=== PATIENT | female | born 1990 | race Caucasian/White ===

== ENCOUNTER 2019-08-27 10:30 | Emergency (ER) | payer OTHER ==
[2019-08-27 10:45] VITALS: BP 105/73; PULSE 88; RESP 17; TEMP 98.2
--- NOTE | 2019-08-27 11:28 | ED ---
General Adult HPI - General Chief complaint: Needlestick/Exposure Stated complaint: [facility]HS- Needl stick Time Seen by Provider: 08/27/19 11:07 Source: patient Mode of arrival: ambulatory Limitations: no limitations - History of Present Illness Initial comments: Patient is a 29-year-old female presenting to the emergency department with a chief complaint of a needle stick exposure. Patient reports she was in our when she accidentally received a needlestick injury to the left index finger. Patient reports the source of the blood is known and currently blood is being obtained. Patient denies any pain at the needlestick site. Patient denies any numbness or tingling. Patient has full range of motion of the finger. No injury to the nailbed or nail. - Related Data Allergies Allergy/AdvReac Type Severity Reaction Status Date / Time No Known Allergies Allergy Verified 08/27/19 10:45 Review of Systems ROS Statement: Those systems with pertinent positive or pertinent negative responses have been documented in the HPI. ROS Other: All systems not noted in ROS Statement are negative. Past Medical History Additional Past Medical History / Comment(s): heart murmur History of Any Multi-Drug Resistant Organisms: None Reported Additional Past Surgical History / Comment(s): wisdom teeth removed Past Psychological History: No Psychological Hx Reported Smoking Status: Never smoker Past Alcohol Use History: Occasional Past Drug Use History: None Reported General Exam - General Exam Comments Initial Comments: General: Well-developed well-nourished distress HEENT: Normocephalic/atraumatic, PERLL, pharynx erythema, swallowing well, EAC no erythema, no exudates, TM clear, no cervical lymph nodes Neck: Supple, nontender, trachea midline Chest/Lungs: Normal respirations, no signs of respiratory distress clear to auscultation bilaterally no wheezes, rales, rhonchi Cardiac: Regular rate and rhythm, normal S1-S2, no murmurs rubs or gallops Abdomen/GI: Soft nontender, bowel sounds equal or quadrant x4, no guarding, no rebound no CVA tenderness Musculoskeletal: Nontender, full range of motion, no edema, strength equal bilaterally, needlestick injury to the distal end of the second left digit Skin: Warmth, no rashes or lesions, no cyanosis or diaphoresis Neurologic: AAO x 3, CN 2-12 intact, Psychiatric: Mood and affect normal, judgment normal Limitations: no limitations Course Vital Signs 08/27/19 10:42 Temperature 98.2 F Pulse Rate 88 Respiratory 17 Rate Blood Pressure 105/73 O2 Sat by Pulse 98 Oximetry Medical Decision Making - Medical Decision Making Patient is a 29-year-old female presenting to the emergency department with a chief complaint of a needle stick. Needle stick forearm was completed by the nurse in the patient. Labs will be obtained and sent for testing. Source is known. Patient will be contacted regarding any further laboratory findings. Strict return parameters were thoroughly discussed with patient was understanding and agreeable. Patient advised to follow with primary care if any abnormal results are indicated. Case discussed physician. Disposition Clinical Impression: Needlestick injury accident with exposure to body fluid Disposition: HOME SELF-CARE Condition: Stable Instructions (If sedation given, give patient instructions): Needle Stick Inju yamilka (ED) Additional Instructions: If any abnormal laboratory results are detected, you will be contacted. Please return to emergency department if symptoms worsen. Is patient prescribed a controlled substance at d/c from ED?: No Referrals: Ron Arredondo DO [Primary Care Provider] - 1-2 days Time of Disposition: 11:27
== END 2019-08-27 12:00 | disposition home or self-care (01) ==
LOC: EC 10:30
DX: S69.92XA Unspecified injury of left wrist, hand and finger(s), initial encounter (principal); W46.0XXA Contact with hypodermic needle, initial encounter; Y92.234 Operating room of hospital as the place of occurrence of the external cause; Y99.0 Civilian activity done for income or pay
CPT/HCPCS: 99282

== ENCOUNTER → 2020-08-25 | Outpatient (CLI) | payer BC ==
--- NOTE | 2020-08-26 07:35 | CT ---
EXAMINATION TYPE: CT angio chest DATE OF EXAM: 08/25/2020 4:39 PM COMPARISON: None. HISTORY: heart murmur, bicuspid aortic valve. CT DLP: 187 mGycm Automated exposure control for dose reduction was used. CONTRAST: CTA scan of the thorax is performed with IV Contrast, patient injected with 100 mL of Isovue 370, pul monary embolism protocol. 3D reconstructed images are created on an independent workstation and revi ewed.. FINDINGS: LUNGS: The lungs are grossly clear, there is no concerning parenchymal mass or nodule identified. T here is no pleural effusion or pneumothorax seen. The tracheobronchial tree is patent. MEDIASTINUM: There is satisfactory enhancement of the central pulmonary arteries without CT evidence for pulmonary embolism. No suspicious dilatation. Satisfactory enhancement of the aorta without disse ction. Ascending aorta measures up to 3.3 cm in diameter axial image 22. Some pulsation artifact is p resent. No aneurysm of the arch or descending aorta. Normal three-vessel origin noted. There are no g reater than 1 cm hilar or mediastinal lymph nodes. No cardiomegaly or pericardial effusion is seen. Probable calcification at level of the aortic valve near axial image 32 and coronal image 341. OTHER: No additional significant abnormality is seen. IMPRESSION: No acute findings are evident. Probable aortic valve calcification and/or pathology with prominence of the ascending aorta up to 3.3 cm. Correlate with echo advised.
== END | disposition home or self-care (01) ==
LOC: RADCTMAIN 15:57
PROVIDERS: ATTEND Internal Medicine Interventional Cardiology
DX: Q23.1 Congenital insufficiency of aortic valve (principal)
CPT/HCPCS: 71275; Q9967

== ENCOUNTER → 2020-10-15 | Day surgery (SDC) | payer BC ==
[2020-10-13 15:21] VITALS: BMI 27.4
[2020-10-15 06:53] VITALS: BP 121/71; PULSE 80; RESP 18; TEMP 98.2
== END ==
LOC: CATHCVL 06:33
PROVIDERS: ATTEND Internal Medicine Interventional Cardiology
DX: Q23.1 Congenital insufficiency of aortic valve (principal); R93.1 Abnormal findings on diagnostic imaging of heart and coronary circulation; I73.9 Peripheral vascular disease, unspecified; R01.1 Cardiac murmur, unspecified; Z79.899 Other long term (current) drug therapy; Z53.9 Procedure and treatment not carried out, unspecified reason
CPT/HCPCS: 81025

== ENCOUNTER 2020-12-22 07:40 | Emergency (ER) | payer BC, OTHER ==
[2020-12-22 07:49] VITALS: BP 103/72; PULSE 98; RESP 18; TEMP 98.3
--- NOTE | 2020-12-22 08:09 | ED ---
General Adult HPI - General Chief complaint: Fall Stated complaint: IHS-fall/ wks preg Time Seen by Provider: 12/22/20 07:51 Source: patient, RN notes reviewed Mode of arrival: ambulatory Limitations: no limitations - History of Present Illness Initial comments: 30-year-old female currently 19 weeks presents to the emergency room for a chief complaint of fall. Patient reports that she was coming into work and slipped in the parking lot and fell on her buttock. Patient denies any neck or back pain. Denies any injuries from the fall. Patient denies any abdominal pain or vaginal bleeding. Patient states her work wanted her to have an ultrasound to make sure everything looks okay.Patient has no other complaints at this time including shortness of breath, chest pain, abdominal pain, nausea or vomiting, headache, or visual changes. - Related Data Home Medications Medication Instructions Recorded Confirmed Har-Rkup-Fanfs Acid 1 cap PO HS 10/13/20 10/15/20 [-U Capsule (formulary)] Magnesium Oxide [Mag-Ox] 250 mg PO DAILY 12/22/20 12/22/20 Previous Rx's Medication Instructions Recorded Cephalexin [Keflex] 500 mg PO BID 7 Days #14 cap 12/22/20 Allergies Allergy/AdvReac Type Severity Reaction Status Date / Time No Known Allergies Allergy Verified 12/22/20 08:04 Review of Systems ROS Statement: Those systems with pertinent positive or pertinent negative responses have been documented in the HPI. ROS Other: All systems not noted in ROS Statement are negative. Past Medical History Additional Past Medical History / Comment(s): heart murmur History of Any Multi-Drug Resistant Organisms: None Reported Additional Past Surgical History / Comment(s): wisdom teeth removed Past Anesthesia/Blood Transfusion Reactions: No Reported Reaction Past Psychological History: No Psychological Hx Reported Smoking Status: Never smoker Past Alcohol Use History: Occasional Past Drug Use History: None Reported - Past Family History Mother Family Medical History: No Reported History Sister(s) Family Medical History: Deep Vein Thrombosis (DVT) General Exam Limitations: no limitations General appearance: alert, in no apparent distress Head exam: Present: atraumatic Eye exam: Present: normal appearance, PERRL, EOMI. Absent: scleral icterus, conjunctival injection ENT exam: Present: normal exam, mucous membranes moist Neck exam: Present: normal inspection, full ROM. Absent: tenderness Respiratory exam: Present: normal lung sounds bilaterally. Absent: respiratory distress, wheezes Cardiovascular Exam: Present: regular rate, normal rhythm, normal heart sounds GI/Abdominal exam: Present: soft, normal bowel sounds, other (gravid abdomen). Absent: distended, tenderness, guarding, rebound, rigid Back exam: Absent: CVA tenderness (R), CVA tenderness (L), vertebral tenderness (no thoracic or lumbar spine tenderness) Course Vital Signs 12/22/20 07:47 Temperature 98.3 F Pulse Rate 98 Respiratory 18 Rate Blood Pressure 103/72 O2 Sat by Pulse 99 Oximetry Medical Decision Making - Medical Decision Making Vitals are stable. Patient is well-appearing. No abdominal tenderness. No CVA tenderness. No number spine tenderness. No injuries. Ultrasound does reveal a single intrauterine gestation estimated at 20 weeks 1 day with cardiac acti vity measured at 161 beats per minutes. No placental abruption. Urinalysis does show evidence of asymptomatic bacturia, patient will be treated with Keflex. Patient requesting the day off work to rest. Patient will be recommended to follow up with her [employer] to discuss this. She will return here for any worsening symptoms. - Lab Data Lab Results 12/22/20 Range/Units 08:08 Urine Color Light Yellow Urine Appearance Cloudy H (Clear) Urine pH 5.5 (5.0-8.0) Ur Specific [place] 1.005 (1.001-1.035) Urine Protein Negative (Negative) Urine Glucose (UA) Negative (Negative) Urine Ketones Negative (Negative) Urine Blood Negative (Negative) Urine Nitrite Negative (Negative) Urine Bilirubin Negative (Negative) Urine Urobilinogen <2.0 (<2.0) mg/dL Ur Leukocyte Esterase Moderate H (Negative) Urine WBC 1 (0-5) /hpf Ur Squamous Epith Cells 3 (0-4) /hpf Urine Bacteria Occasional H (None) /hpf Disposition Clinical Impression: Fall Disposition: HOME SELF-CARE Condition: Good Instructions (If sedation given, give patient instructions): Trauma During (ED) Additional Instructions: Please follow up with your [employer]. Take antibiotic as directed. Return to the emergency room for any worsening symptoms. Prescriptions: Cephalexin [Keflex] 500 mg PO BID 7 Days #14 cap Is patient prescribed a controlled substance at d/c from ED?: No Referrals: Yusef Jordan DO [Primary Care Provider] - 1-2 days Time of Disposition: 08:46
[2020-12-22 08:26] LABS: Appearance,Urine Cloudy (Clear); Bacteria,Urine Occasional /hpf; Bilirubin,Urine Negative (Negative); Blood,Urine Negative (Negative); Color,Urine Light Yellow; Glucose,Urine (UA) Negative (Negative); Ketones,Urine Negative (Negative); Leukocyte Esterase,Urine Moderate (Negative); Nitrite,Urine Negative (Negative); PH, Urine 5.5 (5.0-8.0); Protein,Urine Negative (Negative); Specific Gravity,Urine 1.005 (1.001-1.035); Squamous Epithelial Cell,Urine 3 /hpf (0-4); Urobilinogen,Urine <2.0 mg/dL (<2.0); WBC,Urine 1 /hpf (0-5)
--- NOTE | 2020-12-22 08:40 | US ---
EXAMINATION TYPE: US OB >= 14 wk fetus DATE OF EXAM: 12/22/2020 COMPARISON: None CLINICAL HISTORY: fallslipped and fell on bottom this am, pelvic pain when walking, no cramping, no b leeding TECHNIQUE: OBTA GESTATIONAL AGE / DATING Physician Established: (19 weeks/4 days) EDC: 05/14/2021 Dates by LMP: LMP unknown Dates by First Scan: No previous this is first scan Dates by Current Scan: (20 weeks/1 days) EDC: 05/10/2021 SURVEY IUP: Single PLACENTA: Anterior, placental baltazar noted PREVIA: No Previa. No placental abruption identified. TARAN: 16.8 cm Normal CERVICAL LENGTH (transabdominal: norm > 3.0cm): 3.8 cm BIOMETRY PRESENTATION: Vertex LIE: Longitudinal BPD: 5.0 cm 21 weeks / 1 days HC: 17.9 cm 20 weeks / 2 days AC: 15.4 cm 20 weeks / 4 days FL: 3.2 cm 19 weeks / 6 days ESTIMATED WEIGHT IN GRAMS: 344 grams ESTIMATED WEIGHT IN LBS/OZ: 0 lbs. 12 oz. WEIGHT PERCENTAGE BASED ON ESTABLISHED DATES: 84.4% HC/AC: 1.2 Normal FL/AC: 20.6 Normal HEART RATE: 161 bpm RHYTHM: Normal IMPRESSION: Single intrauterine gestation estimated at 20 weeks 1 day gestation based on current ultrasound measu rements. Cardiac activity measures 161 bpm.
== END 2020-12-22 08:55 | disposition home or self-care (01) ==
LOC: EC 07:40
DX: O9A.212 Injury, poisoning and certain other consequences of external causes complicating pregnancy, second trimester (principal); Z3A.20 20 weeks gestation of pregnancy; Z79.899 Other long term (current) drug therapy
CPT/HCPCS: 76805; 81001; 99283